=== PATIENT | male | born 1955 | race Caucasian/White ===

== ENCOUNTER 2018-02-21 15:49 | Outpatient (CLI) | payer BC ==
--- NOTE | 2018-02-21 18:05 | MRI ---
MRI CERVICAL SPINE: 02/21/2018 HISTORY: History of radiculopathy (M54.12). TECHNIQUE: Multiplanar, multisequence noncontrast enhanced MR images of the cervical spine obtained. COMPARISON: 09/15/2016 FINDINGS: The spinal cord is unremarkable. There is some overall decreased signal seen in the marrow signal, decreased on T1 and T2 weighted seq uences. C1-C2: Unremarkable. C2-C3: Unremarkable. C3-C4: There is a broad-based disk osteophyte complex centrally, compressing the thecal sac. This r esults in mild central stenosis. The right neural foramen is patent. There is moderate left C3-C4 n eural foraminal narrowing due to uncovertebral as well as left-sided facet hypertrophy. C4-C5: There is some disk desiccation seen. There is bilateral uncovertebral osteophyte hypertrophy , resulting in mild C4-C5 neural foraminal narrowing. C5-C6: There is a minimal broad-based disk bulge without evidence of significant central stenosis. The right neural foramen is patent. Mild left C5-C6 neural foraminal narrowing is seen. C6-C7: There is a mild broad-based disk bulge, minimally but not significantly compressing the theca l sac. This has not significantly changed since the previous comparison exam. C7-T1: Unremarkable. IMPRESSION: 1. Overall, some decreased signal throughout the cervical marrow. There is some disk desiccation wi th broad-based disk bulges at C3-C4. 2. Left C3-C4 facet hypertrophy and some neural foraminal narrowing also seen. POS: [facility]
--- NOTE | 2018-02-21 18:20 | RAD ---
CERVICAL SPINE FIVE VIEWS TECHNIQUE: Five views of the cervical spine, including AP, lateral, and open mouth odontoid, as well as flexion and extension views of the cervical spine. FINDINGS: Five views of the cervical spine demonstrate disk space height loss with anterior and posterior osteo phytes seen at the C4-C5 and C5-C6 levels. This is compatible with changes of spondylosis. No evide nce of acute fracture is seen. No evidence of anterolisthesis or retrolisthesis is seen. POS: [facility]
== END 2018-02-21 15:50 | disposition home or self-care (01) ==
LOC: MRI 15:49
PROVIDERS: ATTEND Surgery
DX: M50.11 Cervical disc disorder with radiculopathy, high cervical region (principal); M47.22 Other spondylosis with radiculopathy, cervical region; M99.81 Other biomechanical lesions of cervical region
CPT/HCPCS: 72050; 72141

== ENCOUNTER 2018-05-13 09:58 | Outpatient (CLI) | payer BC ==
[2018-05-13 10:47] LABS: Hemoglobin 15.7 g/dL (14.0-18.0); Mean Corpuscular HGB CONC 35.6 g/dL (32.0-36.0); Mean Corpuscular Hemoglobin 35.1 pg (27.0-31.0); Mean Corpuscular Volume 98.6 fL (78.0-98.0); Mean Platelet Volume 7.2 fL (7.4-10.4); Platelet Count 186 thou/uL (130-400); RBC Distribution Width 11.9 % (11.5-14.5); Red Blood Cell (RBC) Count 4.48 mill/uL (4.70-6.10); White Blood Cell (WBC) Count 5.4 thou/uL (4.8-10.8)
[2018-05-13 10:58] LABS: PTT 29.3 SEC (22.9-36.1); Prothrombin Time 12.8 SEC (12.0-14.7)
[2018-05-13 11:15] LABS: Anion Gap 11 mmol/L (10-20); BUN (Urea Nitrogen) 13 mg/dL (8.4-25.7); Calc. Creatinine Clearance 0 mL/min (70-130); Calcium 9.2 mg/dL (7.8-10.44); Carbon Dioxide 26 mmol/L (23-31); Chloride 103 mmol/L (98-107); Estimated GFR-MDRD 71; Glucose 135 mg/dL (80-115); Sodium 136 mmol/L (136-145)
--- NOTE | 2018-05-13 15:18 | EKG ---
Test Reason : Blood Pressure : / mmHG Vent. Rate : 068 BPM Atrial Rate : 068 BPM P-R Int : 164 ms QRS Dur : 090 ms QT Int : 386 ms P-R-T Axes : 032 024 060 degrees QTc Int : 410 ms Normal sinus rhythm Possible Anterior infarct , age undetermined Abnormal ECG No previous ECGs available Confirmed by ROSA RAM MD ([id number]) on 05/13/2018 3:18:02 PM Referred By: SUSANA Confirmed By:ROSA RAM MD
== END 2018-05-13 09:59 | disposition home or self-care (01) ==
LOC: LABBT 09:58
PROVIDERS: ATTEND Surgery
DX: Z01.818 Encounter for other preprocedural examination (principal); M50.11 Cervical disc disorder with radiculopathy, high cervical region; M48.02 Spinal stenosis, cervical region
CPT/HCPCS: 80048; 85027; 85610; 85730; 93005; 93010

== ENCOUNTER 2018-05-17 05:39 | Day surgery (SDC) | payer BC ==
[2018-05-13 10:46] VITALS: BMI 28.0
[2018-05-17] MEDS ORDERED: CEFAZOLIN/Water 2 GM/20 ML SYRINGE ONE (06:06)
[2018-05-17] MEDS ORDERED: Fentanyl 250 MCG/5 ML VIAL ONE (06:22)
[2018-05-17] MEDS ORDERED: Lidocaine 2% Jelly 5 ML TUBE ONE (06:22)
[2018-05-17] MEDS ORDERED: Midazolam HCl 2 mg/2 ml Vial ONE (06:22)
[2018-05-17] MEDS ORDERED: Sodium Chloride 0.9% 10 ML ONE (06:55)
[2018-05-17] MEDS ORDERED: Thrombin 5000 UNITS/5 ML VIAL ONE (06:55)
[2018-05-17] MEDS ORDERED: Acetaminophen 325 MG TAB PO PRN (09:56)
[2018-05-17] MEDS ORDERED: Promethazine HCl 25 MG/ML VIAL IM PRN (09:56)
[2018-05-17] MEDS ORDERED: Milk Of Magnesia 30 ML UDCUP PO PRN (09:56)
[2018-05-17] MEDS ORDERED: Fleet Enema 133 ML BOT PR SCH (09:56)
[2018-05-17] MEDS ORDERED: Bisacodyl 10 MG SUPP PR PRN (09:56)
[2018-05-17] MEDS ORDERED: Acetaminophen/Codeine 30-300mg Tablet PO PRN (09:56)
[2018-05-17] MEDS ORDERED: Mag-Al 1200 mg/1200 mg/30 ML UDCUP PO PRN (09:56)
[2018-05-17] MEDS ORDERED: Gabapentin 300 MG CAP PO PRN (09:58)
[2018-05-17] MEDS ORDERED: Fentanyl 100 MCG/2 ML VIAL ONE ×2 (10:00→10:16)
[2018-05-17] MEDS ORDERED: Ketorolac Tromethamine 30 MG/ML VIAL ONE (10:00)
--- NOTE | 2018-05-17 11:15 | OP ---
DATE OF PROCEDURE: 05/17/2018 OR: OR #12 WOUND TYPE: Type 1 wound. SURGEON: Vinicio Valera M.D. SCALDER: David Yin PA-C PREPROCEDURE DIAGNOSES: C3-C4 stenosis with neck pain and left C4 radiculopathy. POSTPROCEDURE DIAGNOSES: C3-C4 stenosis with neck pain and left C4 radiculopathy. PROCEDURE: 1. Anterior C3-C4 diskectomy for decompression of spinal cord and C4 nerve roots. 2. Preparation of endplates for placement of interbody spacer packed with local bone autograft obtai angélica from same incision allograft for arthrodesis. 3. Anterior cervical plate and screw fixation, C3-C4. 4. Use of operative microscope for microdissection. PROCEDURE: After informed consent was obtained from the patient, the patient was brought to OR 12. Proper patient pause and identification was carried out. He was placed under excellent endotracheal anesthesia and positioned supine on the OR table. All appropriate points were padded. We identified a right anterior oblique renee that allowed for approach to the C3-C4 segment. This region was steri daryn cleansed, prepared, and draped. Proper patient pause and identification was carried out. We th en proceeded with a right anterior oblique wound lateral to the pharynx and larynx and medial to the right carotid sheath. We identified the prevertebral layer of deep cervical fascia, C3-C4 segment wa s exposed, a localization film confirmed our area of interest. We then performed a distraction at C3 -C4 and we then turned our attention to use of operative microscope for microdissection with excellen t decompression of the common dural tube and the C4 nerve roots and preparation of the endplates. In terbody space was then packed with graft and placed in the interbody space and I was very pleased wit h the construct. We then removed the microscope and anterior cervical plate and screw fixation, C3-C 4 then occurred. The wound was copiously irrigated, hemostasis maximized throughout. We then remove d the microscope and with copious irrigation, then closed the wound over a drain.
[2018-05-17] MEDS: HYDROcodone/Acetaminophen 7.5/325 mg Tablet PO PRN ×3 (11:28→19:22)
[2018-05-17] MEDS: Sodium Chloride 0.9% 1,000 ML IV SCH ×2 (11:56→22:26)
[2018-05-17] MEDS: traMADol HCl 50 MG TAB PO PRN ×2 (13:17→19:22)
[2018-05-17] MEDS: CEFAZOLIN/Water 2 GM/20 ML SYRINGE SLOW IVP SCH ×2 (15:19→21:45)
[2018-05-17] MEDS: tiZANidine HCl 4 MG TAB PO PRN (22:30)
[2018-05-18] MEDS: HYDROcodone/Acetaminophen 7.5/325 mg Tablet PO PRN ×3 (01:33→09:49)
[2018-05-18] MEDS: traMADol HCl 50 MG TAB PO PRN ×2 (01:34→09:49)
[2018-05-18] MEDS: tiZANidine HCl 4 MG TAB PO PRN (05:59)
[2018-05-18] MEDS: CEFAZOLIN/Water 2 GM/20 ML SYRINGE SLOW IVP SCH (06:00)
[2018-05-18] MEDS ORDERED: Lisinopril 10 MG TAB PO SCH (09:00)
[2018-05-18] MEDS ORDERED: Pantoprazole 40 MG GRANULES PACKET PO SCH (09:00)
[2018-05-18 09:22] VITALS: BP 120/72; TEMP 97.9
--- NOTE | 2018-05-18 13:58 | DIS ---
DATE OF ADMISSION: 05/17/2018 DATE OF DISCHARGE: 05/18/2018 DISCHARGE DIAGNOSES: 1. Cervical stenosis. 2. Cervical radiculopathy. HOSPITAL COURSE: Mr. Crenshaw was admitted on 05/17/2018 to undergo C3-4 ACDF. He tolerated the proce dure well and was sent to the surgical floor for recovery. His ROGER drain output was minimal. This wa s removed and he was discharged with good strength in the bilateral upper extremities and good pain c ontrol. Appropriate patient education and followup materials were provided to the patient and again at the time of discharge, both he and his were pleased with his outcome postoperatively. They u nderstood to call the office with questions or concerns prior to his next followup appointment.
== END 2018-05-18 10:28 | disposition home or self-care (01) ==
LOC: SDC 05:39 → SURG B 10:55 → SDC 05-18 10:28
PROVIDERS: ATTEND Surgery
PROC: 0RG10A0 Fusion of Cervical Vertebral Joint with Interbody Fusion Device, Anterior Approach, Anterior Column, Open Approach (ICD-10-PCS; principal; 2018-05-17)
DX: M48.02 Spinal stenosis, cervical region (principal); M50.11 Cervical disc disorder with radiculopathy, high cervical region; Z79.899 Other long term (current) drug therapy
CPT/HCPCS: 76001; 96374; 96375; 96376; A4216; C1713; C1776; J1885; J2250; J2270; J3010; J3490

== ENCOUNTER 2018-07-06 08:57 | Outpatient (CLI) | payer BC ==
--- NOTE | 2018-07-06 10:35 | RAD ---
CERVICAL SPINE TWO VIEWS: Comparison: 02-21-18 History: Follow up exam. Cervical fusion surgery. FINDINGS: There is prevertebral soft tissue swelling. Anterior fusion plate with transvertebral body screw at C 3 and C4. Disc prosthesis at C3-4. No perihardware lucency. Stable degenerative change with loss of d isc space height and osteophyte formation throughout the cervical spine. Vertebral body heights maint ained. No fracture. Degenerative changes of the facets are noted on the AP projection. On the open mouth projection, odon toid process is intact. IMPRESSION: Findings compatible with recent cervical fusion surgery. POS: [facility]
== END 2018-07-06 08:58 | disposition home or self-care (01) ==
LOC: TBSIIMAG 08:57
PROVIDERS: ATTEND Surgery
DX: M54.2 Cervicalgia (principal); Z98.1 Arthrodesis status
CPT/HCPCS: 72040

== ENCOUNTER 2018-08-31 08:33 | Outpatient (CLI) | payer BC ==
--- NOTE | 2018-08-31 09:53 | RAD ---
THREE VIEWS CERVICAL SPINE: DATE: 08/31/2018. COMPARISON: 07/06/2018. HISTORY: Neck pain and cervical radiculopathy. FINDINGS: Anterior diskectomy and fusion hardware noted at C3-4. There is disk space narrowing with anterior osteophyte formation at C4-5 and C5-6, stable. There is minimal anterolisthesis at C5-6, unchanged as well. No evidence for hardware failure. No prevertebr al soft tissue swelling. No acute osseous abnormality. Open-mouth odontoid view demonstrates a norm al-appearing dens in C1-2 articulation. Stable midcervical spine bilateral facet and uncovertebral o steophyte formation, left greater than right. IMPRESSION: Postoperative and degenerative changes of the cervical spine as described above. POS: [facility]
== END 2018-08-31 08:34 | disposition home or self-care (01) ==
LOC: TBSIIMAG 08:33
PROVIDERS: ATTEND Surgery
DX: M50.10 Cervical disc disorder with radiculopathy, unspecified cervical region (principal); M48.02 Spinal stenosis, cervical region; M54.5 Low back pain; M47.22 Other spondylosis with radiculopathy, cervical region; Z98.1 Arthrodesis status
CPT/HCPCS: 72040

== ENCOUNTER 2025-05-02 08:29 | Outpatient (CLI) | payer MEDICARE, OTHER | END 2025-05-02 08:30 | disposition home or self-care (01) | LOC: SCSMRI 08:29 | PROVIDERS: ATTEND Family Medicine | DX: M25.512 Pain in left shoulder (principal); M24.812 Other specific joint derangements of left shoulder, not elsewhere classified ==

== ENCOUNTER 2025-06-21 11:00 | Outpatient (CLI) | payer MEDICARE, OTHER ==
[2025-06-21 11:56] LABS: #Basophils 0.03 10x3/uL (0.0-0.2); #Eosinophils 0.11 10x3/uL (0.0-0.7); #Monocytes 0.46 10x3/uL (0.11-0.59); #Neutrophils 2.40 10x3/uL (1.40-6.50); %Basophils 0.6 % (0.0-1.0); %Eosinophils 2.3 % (0.0-10.0); %Lymphocytes 37.7 % (21.0-51.0); %Monocytes 9.5 % (0.0-10.0); %Neutrophils 49.7 % (42.0-75.0); Hematocrit 45.8 % (42.0-52.0); Hemoglobin 15.4 g/dL (14.0-18.0); Mean Corpuscular Hemoglobin 32.2 pg (27.0-31.0); Mean Corpuscular Volume 95.8 fL (78.0-98.0); Platelet Count 243 10x3/uL (130-400); Red Blood Cell (RBC) Count 4.78 mill/uL (4.70-6.10); White Blood Cell (WBC) Count 4.83 10x3/uL (4.8-10.8)
[2025-06-21 12:45] LABS: Anion Gap 15 mmol/L (10-20); BUN (Urea Nitrogen) 10 mg/dL (8.4-25.7); Calc. Creatinine Clearance 0 mL/min (70-130); Calcium 9.3 mg/dL (7.8-10.44); Carbon Dioxide 23 mmol/L (23-31); Chloride 103 mmol/L (98-107); Glucose 100 mg/dL (80-115); Potassium 5.2 mmol/L (3.5-5.1); Sodium 136 mmol/L (136-145)
== END 2025-06-21 11:01 | disposition home or self-care (01) ==
LOC: LABBT 11:00
PROVIDERS: ATTEND Orthopaedic Surgery
DX: Z01.818 Encounter for other preprocedural examination (principal); S43.005A Unspecified dislocation of left shoulder joint, initial encounter
CPT/HCPCS: 80048; 85025; 93005; 93010